=== PATIENT | female | born 1995 | race Caucasian/White ===

== ENCOUNTER 2017-02-15 12:17 | Emergency (ER) | payer OTHER ==
[2017-02-15] MEDS ORDERED: ACETAMINOPHEN 500 MG TAB PO ONE (12:32)
--- NOTE | 2017-02-15 12:53 | EDPHY ---
H & P Time Seen by Provider: 02/15/17 12:35 HPI/ROS: Chief complaint. Flu-like symptoms HPI. 21-year-old female presents emergency department with 2 week history of sore throat achiness and congestion. It is somewhat waxed and waned and she felt she was getting better. She then developed red watery eyes and was seen at an urgent care [place] with diagnosis of conjunctivitis. Yesterday she started with chills and being more sick again and fever. She has a cough productive yellow sputum. 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 No abdominal pain or vomiting or diarrhea. Normally healthy ROS Constitutional. Fever and chills Eyes. no problems with vision ENT. Congestion slight sore throat Cardiovascular. no chest pain Respiratory. No shortness of breath but cough that is productive Abdominal. no abdominal pain, no nausea/vomiting, no diarrhea . no problems urinating MS. Myalgias Skin. no rash Lymph. no swollen glands Neuro. no headache, no dizziness, no difficulty walking or with speech Past Medical/Surgical History: Lyme disease Social History: Single, nonsmoker, no alcohol Smoking Status: Never smoked Physical Exam: General Appearance: Alert well-developed female moderate distress vital signs show temp 38.8degrees with heart rate 117 Eyes: Pupils equal and round no pallor or injection. ENT, tympanic membranes are normal. Pharynx slightly injected without exudate. Mucous membranes are moist Respiratory: No retractions but mild inspiratory expiratory rhonchi Cardiovascular: Regular rate and rhythm with tachycardia Gastrointestinal: Abdomen is soft and nontender, no masses, bowel sounds normal. Neurological: Awake and alert, sensory and motor exams grossly normal. Skin: Warm and dry, no rashes. Musculoskeletal: Neck is supple nontender. Extremities symmetrical, full range of motion. Psychiatric: Patient is oriented X 3, there is no agitation. Constitutional: Initial Vital Signs Temperature (C) 38.8 C H 02/15/17 12:27 Heart Rate 117 H 02/15/17 12:27 Respiratory Rate 18 02/15/17 12:27 Blood Pressure 140/60 H 02/15/17 12:27 O2 Sat (%) 97 02/15/17 12:27 O2 Delivery Mode Room Air Allergies/Adverse Reactions: No Known Allergies Allergy (Unverified 08/12/12 11:26) Home Medications: Medication Instructions Recorded Azithromycin [Zithromax] 250 mg PO DAILY #6 tab 02/15/17 Medical Decision Making - Diagnostics Imaging Results: Imaging Impressions Chest X-Ray 02/15/17 12:50 Impression: Airways disease. No pneumonia. Chest x-ray interpreted by me as negative for pneumonia Procedures: Tylenol 1 g orally ED Course/Re-evaluation: Re-evaluation 1:15 p.m.. Patient is stable. The patient, her mom and I discussed imaging study results, treatment plan including criteria for return and recommendation for further evaluation. They expressed understanding and agreement Differential Diagnosis: This is likely viral syndrome. It is possible there is superimposed bacterial infection now that the patient has been sick for 2 weeks. She is clearly out of the window for treatment with Tamiflu. No evidence for pneumonia. - Data Points Medications Given: Discontinued Medications Acetaminophen (Tylenol) 1,000 mg PO EDNOW ONE Stop: 02/15/17 12:33 Last Admin: 02/15/17 12:35 Dose: 1,000 mg Departure - Departure Disposition: Home, Routine, Self-Care Clinical Impression: Viral syndrome Condition: Good Instructions: Acute Bronchitis (ED) Additional Instructions: Drink plenty of fluids and stay hydrated. Tylenol 1000 mg every 4-6 hours, ibuprofen 600 mg every 6 hr as needed for fever and achiness. Zithromax is antibiotic. Return for worsening symptoms. Recheck in 2-3 days if not improving Prescriptions: Azithromycin [Zithromax] 250 mg PO DAILY #6 tab
[2017-02-15 13:40] VITALS: BP 106/60; PULSE 99; RESP 16; TEMP 100.4; O2SAT 99
== END 2017-02-15 13:40 | disposition home or self-care (01) ==
LOC: CED 12:17
DX: B34.9 Viral infection, unspecified (principal)
CPT/HCPCS: 71010-PO